=== PATIENT | male | born 1950 | race Caucasian/White ===

== ENCOUNTER 2017-06-20 05:10 | Inpatient (IN) | payer MEDICARE ==
[~2017-06-20] VITALS: Ht 182.9 cm; Wt 108.9 kg
[~2017-06-20 05:10] MED LIST changes: -CARV25TA78 PO
--- NOTE | 2017-06-20 05:12 | ER Report ---
History and Physical Time Seen By MD: 05:07 HPI/BARBARA CHIEF COMPLAINT: Respiratory distress HISTORY OF PRESENT ILLNESS: 66 y.o. male with PMH of CAD, Systolic CHF with LVEF 28%, COPD, A.Fib on Coumadin, HTN, Depression, Neurofibromatosis and ?H/o Hep.C, brought in by EMS with difficulty breathing. All of last night. He took an albuterol nebulizer treatment at home this morning without improvement. Patient was brought in by EMS on C Pap support. They noted a pulse ox on his usual 4 L in the low 80s. With elevated respiratory rate in the 30s. Patient denies recent fevers, chills or productive cough. Patient denies chest pain. EMS notes that he is in atrial fibrillation with rapid ventricular response. On the monitor. REVIEW OF SYSTEMS: Respiratory: As above Cardiovascular: No chest pain, no palpitations. Gastrointestinal: No vomiting, no abdominal pain. Musculoskeletal: No back pain. Allergies: Coded Allergies: No Known Drug Allergies (Verified , 01/07/17) Home Meds Active Scripts Furosemide (LASIX) 20 Mg Tablet, 1 TAB PO DAILY, #3 TAB Prov:VINICIUS MCGHEE PA-C 12/28/16 Losartan Potassium (LOSARTAN POTASSIUM) 25 Mg Tablet, 25 MG PO QDAY, #30 TAB Prov:LORAINE DRIVER DO 10/08/16 Carvedilol (CARVEDILOL) 6.25 Mg Tab, 3 TAB PO BID, #120 TAB Prov:LORAINE DRIVER DO 10/08/16 Potassium Chloride (KLOR-CON M20) 20 Meq Tab.er.prt, 20 MEQ PO QDAY, #15 TAB.SR.24H Prov:JEROMY GUTIERREZ 07/22/16 Reported Medications Warfarin Sodium (WARFARIN SODIUM) 5 Mg Tablet, 5 MG PO QDAY except TUE, TAB 06/20/17 Warfarin Sodium (WARFARIN SODIUM) 5 Mg Tablet, 1.5 TAB PO Tuesday, TAB 06/20/17 Spironolactone (Spironolactone) 25 Mg Tablet, 25 MG PO BID, 0 Refills 06/16/11 Citalopram Hydrobromide (Citalopram Hbr) 20 Mg Tablet, 20 MG PO DAILY, 0 Refills 06/16/11 Digoxin (Lanoxin) 0.125 Mg Tab, 0.125 MG PO QDAY, 0 Refills 06/16/11 Discontinued Scripts Warfarin Sodium (COUMADIN) 5 Mg Tablet, 5 MG PO QDAY@13, #30 TAB Prov:LORAINE DRIVER DO 05/14/16 Past Medical/Surgical History Myocardial infarction, atrial fibrillation, 2001: congestive heart failure, hypertension, emphysema, COPD, 2000: hepatitis C, "vision problems"-wears glasses, neurofibromatosis, depression/anxiety 2003: parathyroidectomy, umbilical hernia repair, 2009: laparoscopic cholecystectomy Hx Smoking: Yes Smoking Status: Former Smoker Exposure to Second Hand Smoke?: Yes Hx Substance Use Disorder: Yes Hx Alcohol Use: Yes Constitutional Vital Sign - Last 24 Hours 06/20/17 06/20/17 06/20/17 06/20/17 05:10 05:14 05:14 05:15 Temp 99.4 Pulse 118 122 Resp 20 42 B/P (MAP) 143/115 Pulse Ox 92 92 O2 Delivery CPAP CPAP O2 Flow Rate 4.0 FiO2 100.0 06/20/17 06/20/17 06/20/17 06/20/17 05:20 05:23 05:30 05:32 Temp 99.5 Pulse 113 153 Resp 50 34 B/P (MAP) 148/117 (127) 142/93 (109) 131/91 (104) Pulse Ox 92 82 O2 Delivery CPAP CPAP 06/20/17 06/20/17 06/20/17 06/20/17 05:37 05:45 05:52 06:00 Pulse 73 68 67 Resp 16 23 16 B/P (MAP) 128/75 (92) 123/79 (94) Pulse Ox 99 98 98 O2 Delivery CPAP CPAP CPAP 06/20/17 06/20/17 06/20/17 06/20/17 06:05 06:10 06:11 06:15 Pulse 55 56 66 Resp 23 19 B/P (MAP) 119/90 (100) Pulse Ox 98 97 FiO2 60.0 06/20/17 06/20/17 06/20/17 06/20/17 06:20 06:25 06:35 06:40 Pulse 69 72 77 Resp 25 17 B/P (MAP) 121/80 (94) Pulse Ox 95 96 94 06/20/17 06/20/17 06/20/17 06/20/17 06:45 06:55 07:00 07:05 Pulse 76 73 78 Resp 22 28 21 B/P (MAP) 136/82 (100) 108/85 (93) Pulse Ox 93 91 94 06/20/17 06/20/17 06/20/17 06/20/17 07:10 07:15 07:20 07:25 Pulse 75 77 89 82 Resp 23 30 30 24 B/P (MAP) 130/97 (108) Pulse Ox 97 95 94 98 06/20/17 06/20/17 06/20/17 06/20/17 07:30 07:35 07:45 07:50 Pulse 129 89 82 70 Resp 32 16 28 21 B/P (MAP) 108/76 (87) 125/85 (98) Pulse Ox 91 95 93 94 06/20/17 07:55 Pulse 85 Pulse Ox 95 Physical Exam Vital signs stable, low-grade fever 99 5. Patient in severe respiratory distress, he is pale and diaphoretic. He is obvious air hunger. His respiratory rates in the upper 30s General Appearance: The patient is alert, has no immediate need for airway protection and no current signs of toxicity. HEENT: Pupils equal and round no injection. Oropharynx with dry mucous membranes, moderate erythema Respiratory: Decreased breath sounds throughout lung felix Cardiac: Tachycardic, irregular rhythm, distant heart sounds Gastrointestinal: Abdomen is soft and non tender, no masses, bowel sounds normal. Musculoskeletal: Neck: Neck is supple and non tender. No JVD Extremities have full range of motion and are non tender. 1+ edema bilaterally. No calf tenderness Skin: No rashes or lesions. [ ] DIFFERENTIAL DIAGNOSIS: After history and physical exam differential diagnosis was considered for shortness of breath including but not limited to pulmonary infectious process, COPD, asthma, pulmonary embolus and congestive heart failure. Medical Decision Making Data Points Result Diagram: 06/20/17 0530 06/20/17 0605 Laboratory Hematology Test 06/20/17 00:00 06/20/17 05:30 06/20/17 06:05 06/20/17 06:38 Prothrombin Time 20.7 seconds (12.0-14.4) Prothromb Time International Ratio 1.74 Activated Partial Thromboplast Time 33 seconds (23-35) Red Blood Count 5.42 M/uL (4.00-5.60) Mean Corpuscular Volume 88.2 fL (80.0-96.0) Mean Corpuscular Hemoglobin 29.5 pg (26.0-33.0) Mean Corpuscular Hemoglobin Concent 33.4 g/dL (32.0-36.0) Red Cell Distribution Width 13.6 % (11.5-14.5) Mean Platelet Volume 9.4 fL (7.2-11.1) Neutrophils (%) (Auto) 83.6 % (39.4-72.5) Lymphocytes (%) (Auto) 9.0 % (17.6-49.6) Monocytes (%) (Auto) 6.3 % (4.1-12.4) Eosinophils (%) (Auto) 0.8 % (0.4-6.7) Basophils (%) (Auto) 0.3 % (0.3-1.4) Nucleated RBC Relative Count (auto) 0.1 /100WBC Neutrophils # (Auto) 9.8 K/uL (2.0-7.4) Lymphocytes # (Auto) 1.1 K/uL (1.3-3.6) Monocytes # (Auto) 0.7 K/uL (0.3-1.0) Eosinophils # (Auto) 0.1 K/uL (0.0-0.5) Basophils # (Auto) 0.0 K/uL (0.0-0.1) Nucleated RBC Absolute Count (auto) 0.01 K/uL Blood Gas Puncture Site Left radial Blood Gas Patient Temperature 99.5 DEGREES Arterial Blood pH 7.36 (7.35-7.45) Arterial Blood Partial Pressure CO2 52 mmHg (32-37) Arterial Blood Partial Pressure O2 278 mmHg (60-80) Arterial Blood HCO3 29 mmol/L (20-26) Arterial Blood Oxygen Saturation 100 % (92-100) Arterial Blood Base Excess 4.0 mmol/L Shaq Test Acceptable Oxygen Liters/Minute 100 B-Type Natriuretic Peptide 946 pg/ml (0-100) Digoxin Level 0.7 ng/ml Digoxin Last Dose Date unk Digoxin Last Dose Time unk Sodium Level 137 mmol/L (137-145) Potassium Level 3.9 mmol/L (3.5-5.0) Chloride Level 98 mmol/L (98-107) Carbon Dioxide Level 28 mmol/L (22-30) Blood Urea Nitrogen 12 mg/dl (9-21) Creatinine 0.90 mg/dl (0.66-1.25) Glomerular Filtration Rate Calc > 60.0 Random Glucose 166 mg/dl (75-110) Calcium Level 8.9 mg/dl (8.4-10.2) Total Bilirubin 3.0 mg/dl (0.2-1.3) Aspartate Amino Transf (AST/SGOT) 32 U/L (0-35) Alanine Aminotransferase (ALT/SGPT) 35 U/L (0-56) Alkaline Phosphatase 55 U/L (0-126) Troponin I 0.012 ng/ml Total Protein 6.6 gm/dl (6.3-8.2) Albumin 3.7 g/dl (3.5-5.0) Urine Color Yellow Urine Clarity Clear Urine pH 5.0 pH (4.8-9.5) Urine Specific [place] 1.008 Urine Protein 100 mg/dL (NEGATIVE) Urine Glucose (UA) Negative mg/dL (NEGATIVE) Urine Ketones Negative mg/dL (NEGATIVE) Urine Blood Small (NEGATIVE) Urine Nitrite Negative (NEGATIVE) Urine Bilirubin Negative (NEGATIVE) Urine Urobilinogen Negative mg/dL (0.2-1.9) Urine Leukocyte Esterase Negative (NEGATIVE) Urine RBC None /HPF (0-2/HPF) Urine WBC 1 /HPF (0-5/HPF) Urine Squamous Epithelial Cells Few /LPF (</=FEW) Urine Bacteria Negative /HPF (NONE-FEW) Urine Hyaline Casts Few /LPF (NONE-FEW) Urine Mucus Few /HPF (NONE-FEW) Chemistry Test 06/20/17 00:00 06/20/17 05:30 06/20/17 06:05 06/20/17 06:38 Prothrombin Time 20.7 seconds (12.0-14.4) Prothromb Time International Ratio 1.74 Activated Partial Thromboplast Time 33 seconds (23-35) White Blood Count 11.8 k/uL (4.5-11.0) Red Blood Count 5.42 M/uL (4.00-5.60) Hemoglobin 16.0 g/dL (14.0-18.0) Hematocrit 47.8 % (42.0-52.0) Mean Corpuscular Volume 88.2 fL (80.0-96.0) Mean Corpuscular Hemoglobin 29.5 pg (26.0-33.0) Mean Corpuscular Hemoglobin Concent 33.4 g/dL (32.0-36.0) Red Cell Distribution Width 13.6 % (11.5-14.5) Platelet Count 125 K/uL (150-450) Mean Platelet Volume 9.4 fL (7.2-11.1) Neutrophils (%) (Auto) 83.6 % (39.4-72.5) Lymphocytes (%) (Auto) 9.0 % (17.6-49.6) Monocytes (%) (Auto) 6.3 % (4.1-12.4) Eosinophils (%) (Auto) 0.8 % (0.4-6.7) Basophils (%) (Auto) 0.3 % (0.3-1.4) Nucleated RBC Relative Count (auto) 0.1 /100WBC Neutrophils # (Auto) 9.8 K/uL (2.0-7.4) Lymphocytes # (Auto) 1.1 K/uL (1.3-3.6) Monocytes # (Auto) 0.7 K/uL (0.3-1.0) Eosinophils # (Auto) 0.1 K/uL (0.0-0.5) Basophils # (Auto) 0.0 K/uL (0.0-0.1) Nucleated RBC Absolute Count (auto) 0.01 K/uL Blood Gas Puncture Site Left radial Blood Gas Patient Temperature 99.5 DEGREES Arterial Blood pH 7.36 (7.35-7.45) Arterial Blood Partial Pressure CO2 52 mmHg (32-37) Arterial Blood Partial Pressure O2 278 mmHg (60-80) Arterial Blood HCO3 29 mmol/L (20-26) Arterial Blood Oxygen Saturation 100 % (92-100) Arterial Blood Base Excess 4.0 mmol/L Shaq Test Acceptable Oxygen Liters/Minute 100 B-Type Natriuretic Peptide 946 pg/ml (0-100) Digoxin Level 0.7 ng/ml Digoxin Last Dose Date unk Digoxin Last Dose Time unk Glomerular Filtration Rate Calc > 60.0 Calcium Level 8.9 mg/dl (8.4-10.2) Total Bilirubin 3.0 mg/dl (0.2-1.3) Aspartate Amino Transf (AST/SGOT) 32 U/L (0-35) Alanine Aminotransferase (ALT/SGPT) 35 U/L (0-56) Alkaline Phosphatase 55 U/L (0-126) Troponin I 0.012 ng/ml Total Protein 6.6 gm/dl (6.3-8.2) Albumin 3.7 g/dl (3.5-5.0) Urine Color Yellow Urine Clarity Clear Urine pH 5.0 pH (4.8-9.5) Urine Specific [place] 1.008 Urine Protein 100 mg/dL (NEGATIVE) Urine Glucose (UA) Negative mg/dL (NEGATIVE) Urine Ketones Negative mg/dL (NEGATIVE) Urine Blood Small (NEGATIVE) Urine Nitrite Negative (NEGATIVE) Urine Bilirubin Negative (NEGATIVE) Urine Urobilinogen Negative mg/dL (0.2-1.9) Urine Leukocyte Esterase Negative (NEGATIVE) Urine RBC None /HPF (0-2/HPF) Urine WBC 1 /HPF (0-5/HPF) Urine Squamous Epithelial Cells Few /LPF (</=FEW) Urine Bacteria Negative /HPF (NONE-FEW) Urine Hyaline Casts Few /LPF (NONE-FEW) Urine Mucus Few /HPF (NONE-FEW) Coagulation Test 06/20/17 00:00 Prothrombin Time 20.7 seconds Prothromb Time International Ratio 1.74 Activated Partial Thromboplast Time 33 seconds Toxicology Test 06/20/17 05:30 Digoxin Level 0.7 ng/ml Digoxin Last Dose Date unk Digoxin Last Dose Time unk Urinalysis Test 06/20/17 06:38 Urine Color Yellow Urine Clarity Clear Urine pH 5.0 pH (4.8-9.5) Urine Specific [place] 1.008 Urine Protein 100 mg/dL (NEGATIVE) Urine Glucose (UA) Negative mg/dL (NEGATIVE) Urine Ketones Negative mg/dL (NEGATIVE) Urine Blood Small (NEGATIVE) Urine Nitrite Negative (NEGATIVE) Urine Bilirubin Negative (NEGATIVE) Urine Urobilinogen Negative mg/dL (0.2-1.9) Urine Leukocyte Esterase Negative (NEGATIVE) Urine RBC None /HPF (0-2/HPF) Urine WBC 1 /HPF (0-5/HPF) Urine Squamous Epithelial Cells Few /LPF (</=FEW) Urine Bacteria Negative /HPF (NONE-FEW) Urine Hyaline Casts Few /LPF (NONE-FEW) Urine Mucus Few /HPF (NONE-FEW) Microbiology Microbiology Date/Time Source Procedure Growth Status 06/20/17 07:00 Blood Peripheral Draw Blood Culture - Preliminary NO GROWTH SO FAR, SET LATE. REINCUBATED Resulted 06/20/17 06:05 Blood Peripheral Draw Blood Culture - Preliminary NO GROWTH SO FAR, SET LATE. REINCUBATED Resulted EKG/Imaging EKG Interpretation 12 lead EKG: Rhythm: Atrial fibrillation with rapid ventricular response, rate 128 [place]: Left axis deviation QRS: Old septal infarct ST segments: Diffuse nonspecific ST and T-wave changes, comparison to previous EKG dated 12/28/16, no significant morphologic change Monitor Interpretation: Atrial Fibrillation Imaging X-ray: Single view portable chest x-ray was obtained. I viewed the images myself on the PACS system. My interpretation of the images is: There is bilateral pulmonary edema and cardiomegaly. Comparison to previous chest x-ray dated 12/28/16, no significant change. The radiologist interpretation had no clinically significant variation from this interpretation. ED Course/Re-evaluation Clinical Indication for ER IV: IV Access ED Course Patient was admitted to an examination room. H&P was done. The differential diagnoses was considered. Patient in severe respiratory distress with a respiratory rate in the upper 30s. I discussed with the patient the option of intubation. He is reluctant to try that. We will proceed with BiPAP for present and aggressively medicated him to reverse his elevated blood pressure, his congestive heart failure. 1 inch of Nitropaste was applied to his chest wall. Lasix 40 mg was given IV. Diltiazem 20 mg is administered IV to control his rate. He was given DuoNeb 3 and Solu-Medrol 125 mg IV. Patient was maintained on BiPAP. ABG was performed. PH 7.39, PCO2 of 51, O2 278, BMP was noted to be 978. Troponin was unremarkable. His white count was mildly elevated 11.4 without left shift. He did have a notable low-grade fever on arrival. Blood cultures were drawn. Patient was weaned to 6 L after improving significantly. His air hunger was resolved. His respiratory rate was down. He was dialed back from an FiO2 of 100% to 60-40. He tolerated 6 L nasal cannula. His saturations maintained in the mid 90s. Patient did note some increased work of breathing. All getting up and voiding urine after receiving Lasix. 06/20/2017 6:59:06 am case was discussed with hospitalist, Dr. Driver who accepts the patient for admission for continued treatment of his congestive heart failure and a COPD exacerbation. Decision to Disposition Date: Jun 20, 2017 Decision to Disposition Time: 05:41 Critical Care Time I spent a total of 60 minutes of critical care time in obtaining history, performing a physical exam, bedside monitoring of interventions, collecting and interpreting tests and discussion with consultants but not including time spent performing procedures. Depart Departure Latest Vital Signs Vital Signs Date Time Temp Pulse Resp B/P (MAP) Pulse Ox O2 Delivery O2 Flow Rate FiO2 06/20/17 07:55 85 95 06/20/17 07:50 21 06/20/17 07:45 125/85 (98) 06/20/17 06:11 60.0 06/20/17 06:00 CPAP 06/20/17 05:23 99.5 06/20/17 05:14 4.0 Impression: Primary Impression: Acute exacerbation of congestive heart failure Additional Impressions: Acute systolic heart failure Atrial fibrillation with rapid ventricular response Neurofibromatosis COPD with acute exacerbation Condition: Improved Disposition: Admitted from ER Referrals: LORAINE DE SANTIAGO MD (PCP) Problem Qualifiers Primary Impression: Acute exacerbation of congestive heart failure Congestive heart failure type: systolic Qualified Codes: I50.23 - Acute on chronic systolic (congestive) heart failure DIONISIO QUEEN DO Jun 20, 2017 05:12
[2017-06-20] MEDS: ALBUTEROL/IPRATROPIUM 3 ML NEB NEB SCH ×2 (05:15→06:11)
[2017-06-20] MEDS ORDERED: methylPREDNIS SUCC 125 MG/2ML IVP ONE (05:15)
[2017-06-20] MEDS ORDERED: FUROSEMIDE 40 MG/4 ML VIAL IVP ONE (05:25)
[2017-06-20] MEDS ORDERED: DILTIAZEM 5 MG/ML 5ML IVPUSH IVP ONE (05:25)
[2017-06-20] MEDS ORDERED: NITROGLYCERIN OINT 1 GM PKT TP ONE (05:25)
[2017-06-20 05:44] LABS: PLATELET COUNT, AUTOMATED 125 K/uL (150-450)
[2017-06-20 05:52] LABS: INR 1.74
--- NOTE | 2017-06-20 06:25 | RADIOLOGY IMAGING REPORT ---
FACILITY: [facility] PATIENT NAME: Adalberto Patel : 1950 MR: [id number] V: [id number] EXAM DATE: ORDERING PHYSICIAN: DIONISIO QUEEN TECHNOLOGIST: Location: [facility] [place] Patient: Adalberto Patel : 1950 Visit/Account:[id number] Date of Sevice: 06/20/2017 CHEST SINGLE AP Additional pertinent History: Respiratory distress COMPARISON STUDIES: 12/28/2016 FINDINGS: Support lines and catheters: EKG wire leads. Oxygen tubing Lungs and Pleura: Increased parahilar interstitial infiltrative change likely representing compensat ed congestive state similar in appearance to the previous chest film from December. Heart and vasculature: Heart is enlarged. Central vasculature is engorged with suspected perihilar a nd infrahilar interstitial pulmonary edema change of an apparent stable compensated degree.. [place] and Mediastinum: Negative. Bones and Chest wall: Negative. Upper Abdomen: Negative. IMPRESSION: 1. Enlarged cardiac silhouette with what appears to be a compensated congestive interstitial pulmonar y edema similar to the previous study. Report Dictated By: Agus Arthur MD at 06/20/2017 6:19 AM Report E-Signed By: Agus Arthur MD at 06/20/2017 6:21 AM WSN:[id number]
[2017-06-20 08:23] VITALS: BP 148/124
[2017-06-20] MEDS ORDERED: FLUSH 10 ML SYR IVP PRN (10:15)
--- NOTE | 2017-06-20 10:56 | EKG ---
FACILITY: [facility] - [place], [place] PATIENT NAME: SIGRID BLACK : [id number] MR: [id number] V: [id number] EXAM DATE: ORDERING PHYSICIAN: DIONISIO QUEEN TECHNOLOGIST: DIMPLE Test Reason : A FIB Blood Pressure : / mmHG Vent. Rate : 126 BPM Atrial Rate : 131 BPM P-R Int : 000 ms QRS Dur : 108 ms QT Int : 384 ms P-R-T Axes : 000 -52 117 degrees QTc Int : 556 ms Atrial fibrillation with rapid ventricular response Left axis deviation Septal infarct (cited on or before 28-DEC-2016) ST and T wave abnormality, consider lateral ischemia or digitalis effect Abnormal ECG When compared with ECG of 28-DEC-2016 11:58, T wave inversion less evident in Lateral leads Confirmed by KATERYNA VELAZQUEZ ([id number]) on 06/20/2017 1:37:38 PM Referred By: Confirmed By:KATERYNA VELAZQUEZ
[2017-06-20 11:31] VITALS: BP 149/112
[2017-06-20] MEDS ORDERED: WARF-18 PO ×2 (12:29)
[2017-06-20] MEDS: CARVEDILOL 6.25 MG TAB PO SCH ×2 (13:00→20:21)
[2017-06-20] MEDS ORDERED: WARFARIN SOD 5 MG TAB PO SCH (13:00)
[2017-06-20] MEDS ORDERED: SALINE 0.65% NAS SPR 44 ML BTL PRN (13:40)
[2017-06-20 14:17] VITALS: Ht 182.9 cm; Wt 108.9 kg
[2017-06-20 15:03] VITALS: BP 153/93
[2017-06-20] MEDS ORDERED: LEVALBUTEROL 1.25 MG/3 ML NEB NEB PRN (15:10)
--- NOTE | 2017-06-20 15:21 | History & Physical ---
History of Present Illness Chief Complaint The patient is a 67 year old male with PMH significant for CHF and COPD who presents with increased shortness of breath for 2 days. History of Present Illness The patient states he has been feeling more short of breath for the past few days. He notes he does not like to take his nebulizer treatment at home because it elevates his heart rate. He is supposed to be on CPAP but doesn't wear it because he "sleeps fine". He has been on other medications for his COPD in the past but has stopped them because he states he was doing well. He denies cough. He has not had fever or chills. His nose is dry and plugged which contributes to his feeling of shortness of breath. He also has history of CAD, CHF and atrial fibrillation. He is on chronic anticoagulation with Coumadin. He states he is taking his meds as prescribed. He denies chest pain or diaphoresis. He notes that he was given a nebulizer treatment in the ER with significant improvement of his symptoms. Per the EMR he did get a Duoneb treatment in ER, but did have an increase in his HR after. A troponin in ER was negative. His BNP was elevated over 900. History Problems: (1) CHF (congestive heart failure) Status: Chronic (2) Neurofibromatosis Status: Chronic (3) HTN (hypertension) Status: Chronic (4) COPD (chronic obstructive pulmonary disease) Status: Chronic (5) CHRONIC ATRIAL FIBRILLATION Status: Chronic (6) Left ventricular systolic dysfunction Status: Chronic (7) DALY (obstructive sleep apnea) Status: Chronic Home Meds Active Scripts Furosemide (LASIX) 20 Mg Tablet, 1 TAB PO DAILY, #3 TAB Prov:VINICIUS MCGHEE PA-C 12/28/16 Losartan Potassium (LOSARTAN POTASSIUM) 25 Mg Tablet, 25 MG PO QDAY, #30 TAB Prov:LORAINE DRIVER DO 10/08/16 Carvedilol (CARVEDILOL) 6.25 Mg Tab, 3 TAB PO BID, #120 TAB Prov:LORAINE DRIVER DO 10/08/16 Potassium Chloride (KLOR-CON M20) 20 Meq Tab.er.prt, 20 MEQ PO QDAY, #15 TAB.SR.24H Prov:JEROMY GUTIERREZ 07/22/16 Reported Medications Warfarin Sodium (WARFARIN SODIUM) 5 Mg Tablet, 5 MG PO QDAY except WED, TAB 06/20/17 Warfarin Sodium (WARFARIN SODIUM) 5 Mg Tablet, 1.5 TAB PO Tuesday, TAB 06/20/17 Spironolactone (Spironolactone) 25 Mg Tablet, 25 MG PO BID, 0 Refills 06/16/11 Citalopram Hydrobromide (Citalopram Hbr) 20 Mg Tablet, 20 MG PO DAILY, 0 Refills 06/16/11 Digoxin (Lanoxin) 0.125 Mg Tab, 0.125 MG PO QDAY, 0 Refills 06/16/11 Discontinued Scripts Warfarin Sodium (COUMADIN) 5 Mg Tablet, 5 MG PO QDAY@13, #30 TAB Prov:LORAINE DRIVER DO 05/14/16 Allergies: Coded Allergies: No Known Drug Allergies (Verified , 01/07/17) Patient History: FH: heart disease MOTHER Neurofibromatosis CHILD CHILD Other Social/Family Hx The patient is . He is disabled. Hx Smoking: Yes Smoking Status: Former Smoker Exposure to Second Hand Smoke?: Yes When Quit Tobacco?: 2001 Caffeine Intake: Soda Caffeine/Cups Per Day: several small pepsi cans per day Hx Alcohol Use: Yes Hx Substance Use Disorder: Yes Social Drugs: Marijuana, Meth, Cocaine, LSD Amount Of Social Drug/s Used: RECREATIONAL USE Review of Systems All Systems Reviewed/Normal: Yes, Except as Noted Constitutional: No Fever Cardiovascular: No Chest Pain Respiratory: Shortness of Breath Gastrointestinal: No Nausea, No Vomiting Exam Vital Signs Vital Signs Date Time Temp Pulse Resp B/P (MAP) Pulse Ox O2 Delivery O2 Flow Rate FiO2 06/20/17 19:11 136/91 (106) 06/20/17 19:08 92 Nasal Cannula 3.0 06/20/17 19:04 98.8 88 26 06/20/17 06:11 60.0 General Appearance: Alert, Awake, Other (Mild to moderate increased work of breathing.) Neuro: No Gross deficits Eyes: PERRLA Neck: No Masses Cardiovascular: Other (Irrregularly irregular.) Respiratory: Other (Decreased BS throughout without rales or rhonchi. Wheezing noted in upper lung felix.) GI: Abd Soft and Non-Tender Extremities: Warm, Perfused Integumentary: Other (Multiple fibromas over skin head to toe.) Psych: Alert & Oriented X3, Appropriate Mood & Affect Medical Decision Making Data Points Result Diagram: 06/20/17 0530 06/20/17 0605 Item Value Date Time Calcium Level 8.9 mg/dl 06/20/17 0605 Total Bilirubin 3.0 mg/dl H 06/20/17 0605 Aspartate Amino Transf (AST/SGOT) 32 U/L 06/20/17 0605 Alanine Aminotransferase (ALT/SGPT) 35 U/L 06/20/17 0605 Alkaline Phosphatase 55 U/L 06/20/17 0605 Total Protein 6.6 gm/dl 06/20/17 0605 Albumin 3.7 g/dl 06/20/17 0605 Troponin I 0.012 ng/ml 06/20/17 0605 B-Type Natriuretic Peptide 946 pg/ml H 06/20/17 0530 Digoxin Level 0.7 ng/ml 06/20/17 05 Blood cultures X 2 pending. EKG / Imaging EKG Interpretation FACILITY: PATIENT NAME: SIGRID BLACK : [id number] MR: [id number] V: [id number] EXAM DATE: ORDERING PHYSICIAN: DIONISIO QUEEN TECHNOLOGIST: DMW Test Reason : A FIB Blood Pressure : / mmHG Vent. Rate : 126 BPM Atrial Rate : 131 BPM P-R Int : 000 ms QRS Dur : 108 ms QT Int : 384 ms P-R-T Axes : 000 -52 117 degrees QTc Int : 556 ms Atrial fibrillation with rapid ventricular response Left axis deviation Septal infarct (cited on or before 28-DEC-2016) ST and T wave abnormality, consider lateral ischemia or digitalis effect Abnormal ECG When compared with ECG of 28-DEC-2016 11:58, T wave inversion less evident in Lateral leads Confirmed by KATERYNA VELAZQUEZ ([id number]) on 06/20/2017 1:37:38 PM Referred By: Confirmed By:KATERYNA VELAZQUEZ [id number] T: RHIANNA/ Imaging FACILITY: PATIENT NAME: Sigrid Black : 1950 MR: [id number] V: [id number] EXAM DATE: ORDERING PHYSICIAN: DIONISIO QUEEN TECHNOLOGIST: Location: [facility] Patient: Sigrid Black : 1950 Visit/Account:[id number] Date of Sevice: 06/20/2017 CHEST SINGLE AP Additional pertinent History: Respiratory distress COMPARISON STUDIES: 12/28/2016 FINDINGS: Support lines and catheters: EKG wire leads. Oxygen tubing Lungs and Pleura: Increased parahilar interstitial infiltrative change likely representing compensated congestive state similar in appearance to the previous chest film from December. Heart and vasculature: Heart is enlarged. Central vasculature is engorged with suspected perihilar and infrahilar interstitial pulmonary edema change of an apparent stable compensated degree.. Ana Paula and Mediastinum: Negative. Bones and Chest wall: Negative. Upper Abdomen: Negative. IMPRESSION: 1. Enlarged cardiac silhouette with what appears to be a compensated congestive interstitial pulmonary edema similar to the previous study. Report Dictated By: Agus Arthur MD at 06/20/2017 6:19 AM Report E-Signed By: Agus Arthur MD at 06/20/2017 6:21 AM [id number] Pre-Admit Course ED Medications Lasix, Cardizem, Solu Medrol, Nitro Bid, Duoneb. Medical Record Review: Yes Assessment and Plan Problems: (1) Acute exacerbation of congestive heart failure Status: Acute Assessment & Plan: The patient has "compensated congestive interstitial pulmonary edema similar to the previous study" on CXR. BNP is elevated a bit more than usual for him. He did receive IV Lasix 40mg in the ER. Will monitor daily weights. Continue carvedilol and losartan. His last echo in 01/03 showed an EF of 43%. (2) Atrial fibrillation with rapid ventricular response Status: Acute Assessment & Plan: Likely related to nebulizer treatment. The patient's heart rate improved with a bolus of Cardizem followed by his usual dose of carvedilol. (3) COPD with acute exacerbation Status: Acute Assessment & Plan: The patient received a Duoneb in ER with good relief of his symptoms. He did have elevation of his HR with this. Will place on Xopenex qid and prn. He received a dose of Solu Medrol in ER. Will continue at a lower dose. (4) HTN (hypertension) Status: Chronic Assessment & Plan: Continue Lasix, carvedilol and losartan. (5) DALY (obstructive sleep apnea) Status: Chronic Assessment & Plan: Will place him on CPAP with napping and at HS. (6) Left ventricular systolic dysfunction Status: Chronic Assessment & Plan: Continue Lasix, carvedilol and losartan. (7) Neurofibromatosis Status: Chronic Assessment & Plan: No acute issues. Central Venous Access Medical Necessity for Access: Hemodynamic Monitoring, IV Access, Medication Administration Time Spent on Plan of Care: < 30 min Venous Thromboembolism VTE Risk Physician Assess for VTE Risk: Yes Patient's VTE Risk: Low VTE Diagnostic Test 2 Days Prior to Admit: No Antithrombotics Is Pt On Any Antithrombotics?: Yes Heart Failure Ejection Fraction %: 28 NYHA Class: III Is Patient on LEILA Inhibitor?: Yes Is Patient on Beta Yaron?: Yes Admission Weight: 100 Exam Sepsis Risk: No Definite Risk Problem Qualifiers (1) Acute exacerbation of congestive heart failure: Congestive heart failure type: systolic Qualified Codes: I50.23 - Acute on chronic systolic (congestive) heart failure KATERYNA HATCH MD Jun 20, 2017 15:21
[2017-06-20] MEDS: LEVALBUTEROL 1.25 MG/3 ML NEB NEB SCH (16:10)
[2017-06-20 19:11] VITALS: BP 136/91
[2017-06-20] MEDS: SPIRONOLACTONE 25 MG TAB PO SCH (20:21)
[2017-06-20] MEDS ORDERED: methylPREDNIS SUCC 125 MG/2ML ONE (20:35)
[2017-06-20] MEDS: methylPREDNIS SUCC 125 MG/2ML IVP SCH (20:37)
[2017-06-21] VITALS (7 sets, daily range): BP systolic 117–144; BP diastolic 81–110
[2017-06-21] MEDS: LEVALBUTEROL 1.25 MG/3 ML NEB NEB SCH ×4 (05:42→16:59)
[2017-06-21 06:29] LABS: PLATELET COUNT, AUTOMATED 143 K/uL (150-450)
[2017-06-21 06:37] LABS: INR 1.67
[2017-06-21] MEDS: SPIRONOLACTONE 25 MG TAB PO SCH ×2 (08:19→13:12)
[2017-06-21] MEDS: methylPREDNIS SUCC 125 MG/2ML IVP SCH ×2 (08:19→20:29)
[2017-06-21] MEDS: FUROSEMIDE 20 MG TAB PO SCH (08:19)
[2017-06-21] MEDS: DIGOXIN 0.125 MG TAB PO SCH (08:19)
[2017-06-21] MEDS: POTASSIUM CHL 20 MEQ TABCR PO SCH (08:20)
[2017-06-21] MEDS: CITALOPRAM HYDROBROM 20 MG TAB PO SCH (08:20)
[2017-06-21] MEDS: CARVEDILOL 6.25 MG TAB PO SCH ×2 (08:20→20:29)
[2017-06-21] MEDS: LOSARTAN POTASSIUM 50 MG TAB PO SCH (08:22)
[2017-06-21] MEDS: OXYMETAZOLINE SPRAY 15 ML BTL ENA SCH ×2 (10:42→20:29)
[2017-06-21] MEDS ORDERED: WARFARIN SOD 5 MG TAB PO SCH (13:00)
[2017-06-21] MEDS: WARFARIN SOD 7.5 MG TAB PO SCH (13:12)
--- NOTE | 2017-06-21 14:37 | Hospitalist Progress Note ---
Subjective Progress Notes Subjective He reports continued SOB secondary to his nasal congestion. He reports very little improvement from admission. Physical Exam Vital Signs Date Time Temp Pulse Resp B/P (MAP) Pulse Ox O2 Delivery O2 Flow Rate FiO2 06/21/17 12:36 91 06/21/17 11:13 98.5 31 117/87 (97) 98 Nasal Cannula 2.5 06/21/17 07:40 30.0 Intake and Output 06/22/17 07:00 Intake Total 735 ml Output Total 575 ml Balance 160 ml Intake Oral 735 ml Output Urine Total 575 ml General Appearance: Alert, Awake, Other (mild WOB) Respiratory: Other (Insp wheeze on left, but moves air to bases well bilaterally) GI: Soft and Non-Tender Extremities: No Edema Result Diagram: 06/21/1761106/21/17611 Monitor Interpretation: Atrial Fibrillation Assessment and Plan Problems: (1) Acute exacerbation of congestive heart failure Status: Acute Assessment & Plan: The patient has "compensated congestive interstitial pulmonary edema similar to the previous study" on CXR. BNP is elevated a bit more than usual for him. He did receive IV Lasix 40mg in the ER. Will monitor daily weights. Continue furosemide, carvedilol and losartan. His last echo in showed an EF of 43%. (2) Atrial fibrillation with rapid ventricular response Status: Acute Assessment & Plan: Likely related to nebulizer treatment. The patient's heart rate improved with a bolus of Cardizem followed by his usual dose of carvedilol. (3) COPD with acute exacerbation Status: Acute Assessment & Plan: The patient received a Duoneb in ER with good relief of his symptoms. He did have elevation of his HR with this. Will place on Xopenex qid and prn. He received a dose of Solu Medrol in ER. Will continue at a lower dose. Will try Afrin with the saline spray for the nasal congestion. (4) HTN (hypertension) Status: Chronic Assessment & Plan: Continue Lasix, carvedilol and losartan. (5) DALY (obstructive sleep apnea) Status: Chronic Assessment & Plan: Will place him on CPAP with napping and at HS. (6) Left ventricular systolic dysfunction Status: Chronic Assessment & Plan: Continue Lasix, carvedilol and losartan. (7) Neurofibromatosis Status: Chronic Assessment & Plan: No acute issues. Central Venous Access Medical Necessity for Access: Hemodynamic Monitoring, IV Access, Medication Administration Heart Failure Ejection Fraction %: 28 NYHA Class: III Is Patient on LEILA Inhibitor?: Yes Is Patient on Beta Yaron?: Yes Admission Weight: 100 Exam Sepsis Risk: No Definite Risk Problem Qualifiers (1) Acute exacerbation of congestive heart failure: Congestive heart failure type: systolic Qualified Codes: I50.23 - Acute on chronic systolic (congestive) heart failure LUPE BOWMAN MD Jun 21, 2017 14:36
[2017-06-22] MEDS: LEVALBUTEROL 1.25 MG/3 ML NEB NEB SCH ×4 (00:44→16:47)
[2017-06-22 03:58] VITALS: BP 131/90
[2017-06-22 07:12] LABS: INR 2.17
[2017-06-22 08:18] VITALS: BP 154/113
[2017-06-22] MEDS: SPIRONOLACTONE 25 MG TAB PO SCH ×2 (08:30→13:44)
[2017-06-22] MEDS: POTASSIUM CHL 20 MEQ TABCR PO SCH (08:30)
[2017-06-22] MEDS: CITALOPRAM HYDROBROM 20 MG TAB PO SCH (08:31)
[2017-06-22] MEDS: FUROSEMIDE 20 MG TAB PO SCH (08:31)
[2017-06-22] MEDS: DIGOXIN 0.125 MG TAB PO SCH (08:31)
[2017-06-22] MEDS: CARVEDILOL 6.25 MG TAB PO SCH (08:31)
[2017-06-22] MEDS: LOSARTAN POTASSIUM 50 MG TAB PO SCH (08:31)
[2017-06-22] MEDS: methylPREDNIS SUCC 125 MG/2ML IVP SCH (08:32)
[2017-06-22] MEDS: OXYMETAZOLINE SPRAY 15 ML BTL ENA SCH ×2 (08:33→20:56)
[2017-06-22] MEDS ORDERED: CARVEDILOL 6.25 MG TAB PO ONE (08:50)
--- NOTE | 2017-06-22 08:58 | Hospitalist Progress Note ---
Subjective Progress Notes Subjective He reports some improvement in his breathing. Physical Exam Vital Signs Date Time Temp Pulse Resp B/P (MAP) Pulse Ox O2 Delivery O2 Flow Rate FiO2 06/22/17 08:31 104 06/22/17 08:18 97.5 20 154/113 (127) 98 Nasal Cannula 2.5 06/22/17 05:32 30.0 Intake and Output 06/23/17 07:00 Intake Total 300 ml Balance 300 ml Intake Oral 300 ml General Appearance: Alert, Awake, No Acute Distress Cardiovascular: Other (tachy, irregular) Respiratory: Clear to Auscultation Extremities: No Edema Result Diagram: 06/21/17 0612 06/21/17 06 Monitor Interpretation: Atrial Fibrillation Assessment and Plan Problems: (1) Acute exacerbation of congestive heart failure Status: Acute Assessment & Plan: The patient has "compensated congestive interstitial pulmonary edema similar to the previous study" on CXR. BNP was elevated a bit more than usual for him. He did receive IV Lasix 40mg in the ER. Daily weights are slightly improved. Continue furosemide, and losartan. Will increase carvedilol to 25mg bid. His last echo in 01/03 showed an EF of 43%. (2) Atrial fibrillation with rapid ventricular response Status: Acute Assessment & Plan: Likely exacerbated by nebulizer treatments. He is on telemetry and is consistently in the 90's to low 100's. Will increase carvedilol to 25mg a day and continue digoxin. He is therapeutic on warfarin. Continue daily INR. (3) COPD with acute exacerbation Status: Acute Assessment & Plan: The patient received a Duoneb in ER with good relief of his symptoms. He did have elevation of his HR with this. On Xopenex qid and prn. On Solu Medrol, but will switch to prednisone. Will try Afrin with the saline spray for the nasal congestion. (4) HTN (hypertension) Status: Chronic Assessment & Plan: Continue Lasix, carvedilol and losartan. (5) DALY (obstructive sleep apnea) Status: Chronic Assessment & Plan: Will place him on CPAP with napping and at HS. (6) Left ventricular systolic dysfunction Status: Chronic Assessment & Plan: Continue Lasix, carvedilol and losartan. (7) Neurofibromatosis Status: Chronic Assessment & Plan: No acute issues. Central Venous Access Medical Necessity for Access: Hemodynamic Monitoring, IV Access, Medication Administration Heart Failure Ejection Fraction %: 28 NYHA Class: III Is Patient on LEILA Inhibitor?: Yes Is Patient on Beta Yaron?: Yes Admission Weight: 100 Exam Sepsis Risk: No Definite Risk Problem Qualifiers (1) Acute exacerbation of congestive heart failure: Congestive heart failure type: systolic Qualified Codes: I50.23 - Acute on chronic systolic (congestive) heart failure LUPE BOWMAN MD Jun 22, 2017 08:58
[2017-06-22 11:30] VITALS: BP 150/80
[2017-06-22] MEDS ORDERED: WARFARIN SOD 7.5 MG TAB PO SCH (13:00)
[2017-06-22] MEDS ORDERED: WARFARIN SOD 5 MG TAB PO SCH (13:00)
[2017-06-22 16:31] VITALS: BP 140/100
[2017-06-22] MEDS: predniSONE 20 MG TAB PO SCH (16:44)
[2017-06-22 19:46] VITALS: BP 150/88
[2017-06-22] MEDS: CARVEDILOL 25 MG TABLET PO SCH (20:56)
[2017-06-23] MEDS: LEVALBUTEROL 1.25 MG/3 ML NEB NEB SCH ×3 (00:39→11:18)
[2017-06-23 03:12] VITALS: BP 138/82
[2017-06-23 06:18] LABS: INR 2.34
[2017-06-23 08:16] VITALS: BP 145/90
[2017-06-23] MEDS: CARVEDILOL 25 MG TABLET PO SCH (08:55)
[2017-06-23] MEDS: POTASSIUM CHL 20 MEQ TABCR PO SCH (08:55)
[2017-06-23] MEDS: SPIRONOLACTONE 25 MG TAB PO SCH ×2 (08:55→13:31)
[2017-06-23] MEDS: DIGOXIN 0.125 MG TAB PO SCH (08:56)
[2017-06-23] MEDS: CITALOPRAM HYDROBROM 20 MG TAB PO SCH (08:56)
[2017-06-23] MEDS: predniSONE 20 MG TAB PO SCH (08:56)
[2017-06-23] MEDS: LOSARTAN POTASSIUM 50 MG TAB PO SCH (08:56)
[2017-06-23] MEDS: FUROSEMIDE 20 MG TAB PO SCH (08:57)
[2017-06-23] MEDS: OXYMETAZOLINE SPRAY 15 ML BTL ENA SCH (08:57)
[2017-06-23] MEDS ORDERED: INFLUENZA VIRUS VAC 0.5 ML SYR IM ONLY ONE (09:00)
[2017-06-23 13:21] VITALS: BP 148/82
[2017-06-23] MEDS ORDERED: WARF-18 PO (13:22)
[2017-06-23] MEDS ORDERED: FURO20TA19 PO (13:22)
[2017-06-23] MEDS ORDERED: CARV25TA78 PO (13:22)
[2017-06-23] MEDS ORDERED: PRED20TA6 PO (13:22)
[2017-06-23] MEDS: WARFARIN SOD 7.5 MG TAB PO SCH (13:31)
--- NOTE | 2017-06-23 13:31 | Hospitalist Depart ---
Discharge Summary Reason for Hosp/Final Diag: (1) Acute exacerbation of congestive heart failure Status: Acute Hospital Course & Plan: The patient has "compensated congestive interstitial pulmonary edema similar to the previous study" on CXR. BNP was elevated a bit more than usual for him. He did receive IV Lasix 40mg in the ER. Daily weights are slightly improved. Continue furosemide, and losartan. Carvedilol increased to 25mg bid. His last echo in 01/03 showed an EF of 43%. (2) Atrial fibrillation with rapid ventricular response Status: Acute Hospital Course & Plan: Increased carvedilol to 25mg a day to improve rate control, which he has tolerated well. Continue digoxin. He is therapeutic on warfarin. INR in 5-7 days. (3) COPD with acute exacerbation Status: Acute Hospital Course & Plan: The patient received a Duoneb in ER with good relief of his symptoms. On Solu Medrol, but was switched to prednisone. Will wean him off Prednisone over 4 days. (4) HTN (hypertension) Status: Chronic Hospital Course & Plan: Continue Lasix, carvedilol and losartan. (5) DALY (obstructive sleep apnea) Status: Chronic Hospital Course & Plan: He needs to get a formal sleep study to determine need. (6) Left ventricular systolic dysfunction Status: Chronic Hospital Course & Plan: Continue Lasix, carvedilol and losartan. (7) Neurofibromatosis Status: Chronic Hospital Course & Plan: No acute issues. Departure Weight (Pounds): 240 Weight (Ounces): 8.0 Result Diagram: 06/21/1761106/21/17 06 Item Value Date Time White Blood Count 11.8 k/uL H 06/20/17 0530 White Blood Count 10.3 k/uL 06/21/17 0612 Hemoglobin 16.0 g/dL 06/20/17 0530 Hemoglobin 17.4 g/dL 06/21/17 06 Platelet Count 125 K/uL L 06/20/17 0530 Platelet Count 143 K/uL L 06/21/17 0612 Neutrophils (%) (Auto) 83.6 % H 06/20/17 0530 Neutrophils (%) (Auto) 90.5 % H 06/21/17 0612 Prothromb Time International Ratio 1.74 06/20/17 0000 Prothromb Time International Ratio 1.67 06/21/17 0612 Prothromb Time International Ratio 2.17 06/22/17 0636 Prothromb Time International Ratio 2.34 06/23/17 0520 Urine WBC 1 /HPF 06/20/17 0638 Urine RBC None /HPF 06/20/17 0638 Urine Squamous Epithelial Cells Few /LPF 06/20/17 0638 Urine Bacteria Negative /HPF 06/20/17 0638 Urine Leukocyte Esterase Negative 06/20/17 0638 Urine Nitrite Negative 06/20/17 0638 Digoxin Level 0.7 ng/ml 06/20/17 0530 B-Type Natriuretic Peptide 946 pg/ml H 06/20/17 0530 Troponin I 0.012 ng/ml 06/20/17 0605 Aspartate Amino Transf (AST/SGOT) 32 U/L 06/20/17 0605 Alanine Aminotransferase (ALT/SGPT) 35 U/L 06/20/17 0605 Alkaline Phosphatase 55 U/L 06/20/17 0605 Total Bilirubin 3.0 mg/dl H 06/20/17 0605 Random Glucose 166 mg/dl H 06/20/17 0605 Random Glucose 143 mg/dl H 06/21/17 0612 Chloride Level 98 mmol/L 06/20/17 0605 Chloride Level 96 mmol/L L 06/21/17 0612 Sodium Level 137 mmol/L 06/20/17 0605 Sodium Level 136 mmol/L L 06/21/17 0612 Blood Urea Nitrogen 12 mg/dl 06/20/17 06 Blood Urea Nitrogen 20 mg/dl 06/21/17 0612 Creatinine 0.90 mg/dl 06/20/17 0605 Creatinine 0.90 mg/dl 06/21/17 0612 Arterial Blood pH 7.36 06/20/17 0530 Arterial Blood Partial Pressure CO2 52 mmHg *H 06/20/17 0530 Arterial Blood Partial Pressure O2 278 mmHg *H 06/20/17 0530 Arterial Blood HCO3 29 mmol/L H 06/20/17 0530 Arterial Blood Oxygen Saturation 100 % 06/20/17 0530 Arterial Blood Base Excess 4.0 mmol/L 06/20/17 0530 No growth from blood cultures x2 from 06/20/17 Imaging 06/20/17 CXR - 1. Enlarged cardiac silhouette with what appears to be a compensated congestive interstitial pulmonary edema similar to the previous study. EKG Vent. Rate : 126 BPM Atrial Rate : 131 BPM P-R Int : 000 ms QRS Dur : 108 ms QT Int : 384 ms P-R-T Axes : 000 -52 117 degrees QTc Int : 556 ms Atrial fibrillation with rapid ventricular response Left axis deviation Septal infarct (cited on or before 28-DEC-2016) ST and T wave abnormality, consider lateral ischemia or digitalis effect Abnormal ECG When compared with ECG of 28-DEC-2016 11:58, T wave inversion less evident in Lateral leads Confirmed by KATERYNA VELAZQUEZ ([id number]) on 06/20/2017 1:37:38 PM Condition: Improved Discharge: Home Discharge Instructions Home Meds Active Scripts Prednisone (PREDNISONE) 20 Mg Tablet, 10-20 MG PO DAILY, #3 Take 1 pill a day for 2 days, then 1/2 pill a day for 2 days Prov:LUPE BOWMAN MD 06/23/17 Carvedilol (CARVEDILOL) 25 Mg Tablet, 25 MG PO BID, #60 Prov:LUPE BOWMAN MD 06/23/17 Warfarin Sodium (WARFARIN SODIUM) 5 Mg Tablet, 1-1.5 TAB PO DAILY for 1 Day, TAB Take one pill on Tue/Tue/Tue/Tue/Sun and 1.5 pills on / Prov:LUPE BOWMAN MD 06/23/17 Furosemide (LASIX) 20 Mg Tablet, 1 TAB PO DAILY, #30 TAB Prov:LUPE BOWMAN MD 06/23/17 Losartan Potassium (LOSARTAN POTASSIUM) 25 Mg Tablet, 25 MG PO QDAY, #30 TAB Prov:LORAINE DRIVER DO 10/08/16 Potassium Chloride (KLOR-CON M20) 20 Meq Tab.er.prt, 20 MEQ PO QDAY, #15 TAB.SR.24H Prov:JEROMY GUTIERREZ PRODUCTION GENERALIST 07/22/16 Reported Medications Spironolactone (Spironolactone) 25 Mg Tablet, 25 MG PO BID, 0 Refills 06/16/11 Citalopram Hydrobromide (Citalopram Hbr) 20 Mg Tablet, 20 MG PO DAILY, 0 Refills 06/16/11 Digoxin (Lanoxin) 0.125 Mg Tab, 0.125 MG PO QDAY, 0 Refills 06/16/11 Discontinued Reported Medications Warfarin Sodium (WARFARIN SODIUM) 5 Mg Tablet, 5 MG PO QDAY except WED, TAB 06/20/17 Discontinued Scripts Carvedilol (CARVEDILOL) 6.25 Mg Tab, 3 TAB PO BID, #120 TAB Prov:LORAINE DRIVER DO 10/08/16 Warfarin Sodium (COUMADIN) 5 Mg Tablet, 5 MG PO QDAY@13, #30 TAB Prov:NEISHALORAINE CARCAMO DO 05/14/16 Diet: Fluid Restricted, No Added Salt (GEOFFREY) Special Instructions: Weigh yourself daily and call your PCP for an increase of 5 pounds from baseline. Drink only 2 liters of all fluid in a 24 hours period BMP in 5-7 days INR in 5-7 days Followup with your PCP in 1-2 weeks Copies to: LORAINE DE SANTIAGO MD Venous Thromboembolism Antithrombotics Is Pt On Any Antithrombotics?: Yes Heart Failure Ejection Fraction %: 28 NYHA Class: III Is Patient on LEILA Inhibitor?: Yes Is Patient on Beta Yaron?: Yes Admission Weight: 100 Problem Qualifiers (1) Acute exacerbation of congestive heart failure: Congestive heart failure type: systolic Qualified Codes: I50.23 - Acute on chronic systolic (congestive) heart failure LUPE BOWMAN MD Jun 23, 2017 13:31
== END 2017-06-23 13:40 | disposition home or self-care (01) | DRG 292 ==
LOC: ER 05:12 → MED 07:56
PROVIDERS: ADMIT Family Medicine; ATTEND Family Medicine
PROC: 5A09357 Assistance with Respiratory Ventilation, Less than 24 Consecutive Hours, Continuous Positive Airway Pressure (ICD-10-PCS; principal; 2017-06-20)
DX: I11.0 Hypertensive heart disease with heart failure (principal); J44.1 Chronic obstructive pulmonary disease with (acute) exacerbation; I48.0 Paroxysmal atrial fibrillation; G47.33 Obstructive sleep apnea (adult) (pediatric); I50.23 Acute on chronic systolic (congestive) heart failure; I25.10 Atherosclerotic heart disease of native coronary artery without angina pectoris; F41.8 Other specified anxiety disorders; Q85.00 Neurofibromatosis, unspecified; T48.6X5A Adverse effect of antiasthmatics, initial encounter; Y92.230 Patient room in hospital as the place of occurrence of the external cause; I25.2 Old myocardial infarction; Z90.49 Acquired absence of other specified parts of digestive tract; Z87.891 Personal history of nicotine dependence; Z79.01 Long term (current) use of anticoagulants; E89.0 Postprocedural hypothyroidism
CPT/HCPCS: 36415; 36600; 71045; 80162; 81001; 82040; 82247; 82310; 82374; 82435; 82565; 82803; 82947; 83880; 84075; 84132; 84155; 84295; 84450; 84460; 84484; 84520; 85025; 85610; 85730; 87040; 93005; 94640; 94660; 96374; 96375; 99284; 99291; J1940; J2930; J3490; J7512

== ENCOUNTER → 2017-06-20 | Outpatient (CLI) | payer MEDICARE ==
[~2017-06-20] MED LIST: ALB17R INH; AMOX500T10 PO; AZIT-1 PO; CAR6.25 PO; CARV25TA78 PO; CITA-128 PO; COL0.6 PO; DIA5 PO; DIG125 PO; DULO60CA51 PO; FUR40 PO; FURO20TA19 PO; IBUP-1487 PO; IPRA3AMP21 IH; KET10 PO; LEVO500T PO; LOR5 PO; LOSA25TA50 PO; LOSA50TA72 PO; METH4TAB57 PO; NEBU1KIT43 MC; PAN40 PO; PER PO; POTA20TA85 PO; POTT20 PO; PRAZ2CAP PO; PRED-1 PO; PRED20TA6 PO; SPIR25TA78 PO; SUCR1ORA13 PO; TIO18R INH; VERA200C8 PO; WAR5 PO; WARF-1 PO; WARF-12 PO; WARF-18 PO; WARF10TA29 PO; WARF2.5T62 PO; ZESTORETIC; [UNRECOGNIZED DRUG - CODE] PO; [UNRECOGNIZED DRUG - OTHER]
[2017-06-20 14:17] VITALS: BMI 33.1
== END ==
LOC: AMB 04:41
PROVIDERS: ATTEND Nurse Practitioner
DX: R06.02 Shortness of breath (principal); J44.9 Chronic obstructive pulmonary disease, unspecified; I50.9 Heart failure, unspecified; I48.91 Unspecified atrial fibrillation
CPT/HCPCS: A0425; A0427